=== PATIENT | female | born 1980 | race Caucasian/White ===

== ENCOUNTER 2019-10-14 08:42 | Emergency (ER) | payer MEDICAID, SELFPAY ==
[~2019-10-14] VITALS: Ht 149.9 cm; Wt 53.5 kg
[2019-10-14 08:44] VITALS: BP 105/59
--- NOTE | 2019-10-14 08:50 | NUR ---
DR VO AT TENT TO SEE PT
--- NOTE | 2019-10-14 08:57 | NUR ---
38 y/f presents with fever, chills, butler, body ache, nonproductive cough, loss of taste. denies sob, n/v/d. pt reports close contact with person + for covid 19 at work and a neighbor. pmh- denies nkda rx- denies
--- NOTE | 2019-10-14 09:18 | NUR ---
COVID SWAB COLLECTED, LAB CALLED FOR PICKUP
[2019-10-14 09:19] VITALS: BP 114/68
--- NOTE | 2019-10-17 12:03 | NUR ---
Positive covid report received from Lab. Will send copy of report to household assistant and contact pt.
== END 2019-10-14 09:19 | disposition home or self-care (01) ==
LOC: MED 08:42 → EEVIPCON 08:42 → MED 09:19
DX: R50.9 Fever, unspecified (principal); R05 Cough; M79.10 Myalgia, unspecified site; Z20.828 Contact with and (suspected) exposure to other viral communicable diseases
CPT/HCPCS: 99283; U0003

== ENCOUNTER 2019-11-20 19:12 | Emergency (ER) | payer MEDICAID, SELFPAY ==
[~2019-11-20] VITALS: Ht 134.6 cm; Wt 90.3 kg
--- NOTE | 2019-11-20 19:40 | NUR ---
PT TAKEN TO ER BED 12
[2019-11-20 19:46] VITALS: BP 108/58
[2019-11-20] MEDS ORDERED: DOPPLER MC ONE ×2 (19:51→19:58)
--- NOTE | 2019-11-20 20:01 | NUR ---
RECEIVED A 38/F FROM TRIAGE WITH C/O ABDOMINAL PAIN TO THE LLQ X 1 DAY. PT REPORTS THAT SHE IS CURRENTLY . . TENDERNESS NOTED TO LLQ WITH PAIN REPORTED UPON PALPATION. REPORTS ONE EPISODE OF VOMITTING. NO APPRENT DISTRESS NOTED. IN BED FOR MSE.
[2019-11-20 20:32] LABS: BASOPHILS # (AUTO) 0.1 K/uL (0.00-0.22); BASOPHILS % (AUTO) 0.5 % (0.0-2.0); EOSINOPHILS # (AUTO) 0.1 K/uL (0-0.4); EOSINOPHILS % (AUTO) 0.4 % (0.0-4.0); HEMATOCRIT 37.9 % (36-48); HEMOGLOBIN 12.9 g/dL (12.0-16.0); LYMPHOCYTES # (AUTO) 1.1 K/uL (2.5-16.5); LYMPHOCYTES % (AUTO) 8.9 % (20.5-51.1); MEAN CORPUSCULAR HEMOGLOBIN 32 pg (27-31); MEAN CORPUSCULAR HGB CONC 34 g/dL (33-37); MEAN CORPUSCULAR VOLUME 94.4 fL (80-94); MONOCYTES # (AUTO) 0.7 K/uL (0.8-1.0); MONOCYTES % (AUTO) 5.8 % (1.7-9.3); NEUTROPHILS # (AUTO) 10.3 K/uL (1.8-7.7); NEUTROPHILS % (AUTO) 84.4 % (42.2-75.2); PLATELET COUNT (AUTO) 294 K/uL (140-450); RED BLOOD CELL COUNT(AUTO) 4.02 MIL/uL (4.20-5.40); RED CELL DISTRIBUTION WIDTH 13.4 % (11.6-13.7); WHITE BLOOD COUNT (AUTO) 12.2 K/uL (4.8-10.8)
[2019-11-20 20:40] LABS: APPEARANCE,URINE CLEAR (CLEAR); BILIRUBIN,URINE NEGATIVE (NEGATIVE); BLOOD, URINE NEGATIVE (NEGATIVE); COLOR,URINE YELLOW (YELLOW); LEUKOCYTE ESTERASE ,URINE NEGATIVE (NEGATIVE); NITRITE, URINE NEGATIVE (NEGATIVE); UGLUCOSE NEGATIVE (NEGATIVE)
[2019-11-20 21:58] VITALS: BP 111/61
--- NOTE | 2019-11-20 21:58 | NUR ---
Patient discharged with v/s stable. Written and verbal after care instructions given and explained. Patient verbalized understanding. Ambulatory with steady gait. All questions addressed prior to discharge. Advised to follow up with PMD.
== END 2019-11-20 21:58 | disposition home or self-care (01) ==
LOC: MED 19:12
DX: O20.0 Threatened abortion (principal); Z3A.08 8 weeks gestation of pregnancy
CPT/HCPCS: 36415; 76817; 81003; 81025; 84702; 85025; 86900; 86901; 99284; Q0092